=== PATIENT | female | born 2005 | race Caucasian/White ===

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

== ENCOUNTER 2023-11-03 19:37 | Emergency (ER) | payer SELFPAY ==
[~2023-11-03] VITALS: Ht 157.5 cm; Wt 77.0 kg
[~2023-11-03 19:37] MED LIST changes: +DICYCLOMINE HCL20 MG PO
[2023-11-03] MEDS ORDERED: ACETAMINOPHEN 500 MG TAB PO ONE (20:35)
[2023-11-03 20:52] LABS: BASO% 0.4 % (0-3); EOS% 1.8 % (0-8); HEMATOCRIT 35.1 % (37.0-47.0); HEMOGLOBIN 11.4 g/dl (12.0-16.0); IMMATURE GRANULOCYTES 0.1 % (0.0-5.0); LYMPH% 29.3 % (15-41); MEAN CELL VOLUME 84.8 fL CALC (80.0-100.0); MEAN CORPUSCULAR HGB 27.5 pG CALC (26.0-32.0); MEAN CORPUSCULAR HGB CONC 32.5 g/dL CAL (32.0-36.0); MONO% 7.4 % (2-13); NEUT# 4.51 thou/uL (2.00-7.15); RED BLOOD COUNT 4.14 mill/uL (4.20-5.60)
[2023-11-03 20:55] LABS: URINE BILIRUBIN - DIPSTICK Negative (NEGATIVE); URINE BLOOD DIPSTICK Negative (NEGATIVE); URINE GLUCOSE - DIPSTICK Negative (NEGATIVE); URINE KETONE Negative (NEGATIVE); URINE LEUK ESTERASE Negative (NEGATIVE); URINE NITRITE - DIPSTICK Negative (Negative); URINE PH 8.5 (4.5-8.0); URINE PROTEIN - DIPSTICK Trace mg/dL (NEG-TRACE)
[2023-11-03 20:56] LABS: URINE COLOR Yellow
[2023-11-03 21:11] LABS: ALBUMIN 4.2 g/dL (3.2-5.0); BILIRUBIN, TOTAL 0.6 mg/dL (0.02-1.3); CREATININE 0.6 mg/dL (0.5-1.0); POTASSIUM 3.8 mmol/l (3.5-5.1); TOTAL PROTEIN 7.4 g/dL (6.3-8.2)
[2023-11-03] MEDS ORDERED: DICYCLOMINE HCL 10 MG/CAP PO ONE (22:40)
[2023-11-03 22:58] VITALS: BP 110/67
== END 2023-11-03 22:58 | disposition home or self-care (01) | DRG 392 ==
LOC: ED 19:37
PROVIDERS: Internal Medicine
DX: R10.12 Left upper quadrant pain (principal); R10.32 Left lower quadrant pain; R74.8 Abnormal levels of other serum enzymes

== ENCOUNTER 2023-11-16 05:08 | Emergency (ER) | payer SELFPAY ==
[~2023-11-16] VITALS: Ht 157.5 cm; Wt 82.0 kg
[2023-11-16 05:21] VITALS: BP 113/73
[2023-11-16 05:35] VITALS: BP 120/68
[2023-11-16] MEDS ORDERED: PROMETHAZINE HCL 25 MG/ML AMP IV ONE (05:35)
[2023-11-16] MEDS ORDERED: ACETAMINOPHEN 500 MG TAB PO ONE (05:35)
[2023-11-16] MEDS ORDERED: SODIUM CHLORIDE 0.9% 1,000 ML IV ONE (05:35)
[2023-11-16] MEDS ORDERED: SUMAtriptan SUCCINATE 6 MG/0.5 ML SDV SC ONE (05:35)
[2023-11-16] MEDS ORDERED: KETOROLAC TROMETHAMINE 30 MG/ML SDV IV ONE (05:35)
[2023-11-16] MEDS ORDERED: DEXAMETHASONE SOD. PHOSPHATE 10 MG/ML VIAL IV ONE (05:35)
[2023-11-16] MEDS ORDERED: DiphenhydrAMINE HCL 50 MG/ML SDV IV ONE (05:55)
[2023-11-16 06:38] LABS: URINE BILIRUBIN - DIPSTICK Negative (NEGATIVE); URINE BLOOD DIPSTICK Negative (NEGATIVE); URINE GLUCOSE - DIPSTICK Negative (NEGATIVE); URINE KETONE Negative (NEGATIVE); URINE LEUK ESTERASE Negative (NEGATIVE); URINE NITRITE - DIPSTICK Negative (Negative); URINE PROTEIN - DIPSTICK Negative (NEG-TRACE); URINE SPECIFIC GRAVITY 1.015
[2023-11-16 06:39] LABS: BASO% 0.6 % (0-3); EOS% 2.3 % (0-8); HEMATOCRIT 37.5 % (37.0-47.0); HEMOGLOBIN 12.3 g/dl (12.0-16.0); IMMATURE GRANULOCYTES 0.1 % (0.0-5.0); LYMPH% 30.8 % (15-41); MEAN CELL VOLUME 84.8 fL CALC (80.0-100.0); MEAN CORPUSCULAR HGB 27.8 pG CALC (26.0-32.0); MEAN CORPUSCULAR HGB CONC 32.8 g/dL CAL (32.0-36.0); MONO% 7.5 % (2-13); NEUT# 5.86 thou/uL (2.00-7.15); NEUT% 58.7 % (42-76); RED BLOOD COUNT 4.42 mill/uL (4.20-5.60); RED CELL DISTRI WIDTH 12.5 % (11.5-15.5)
[2023-11-16 06:59] LABS: ALBUMIN 4.5 g/dL (3.2-5.0); BILIRUBIN, TOTAL 0.5 mg/dL (0.02-1.3); CREATININE 0.6 mg/dL (0.5-1.0)
[2023-11-16 07:02] VITALS: BP 107/74
[2023-11-16 07:03] LABS: URINE COLOR Yellow
[2023-11-16] MEDS ORDERED: PROMETHAZINE HY25 M1 PO (07:39)
[2023-11-16 07:46] VITALS: BP 107/74
== END 2023-11-16 07:55 | disposition home or self-care (01) | DRG 833 ==
LOC: ED 05:08
PROVIDERS: Family Medicine
DX: O26.891 Other specified pregnancy related conditions, first trimester (principal); R51.9 Headache, unspecified; Z3A.00 Weeks of gestation of pregnancy not specified

== ENCOUNTER 2024-06-05 14:15 | Emergency (ER) | payer OTHER ==
[~2024-06-05] VITALS: Ht 157.5 cm; Wt 84.0 kg
[~2024-06-05 14:15] MED LIST changes: +PROMETHAZINE HY25 M1 PO
[2024-06-05 14:21] VITALS: BP 127/81
[2024-06-05 14:30] VITALS: BP 121/71
== END 2024-06-05 15:26 | disposition home or self-care (01) ==
LOC: ED 14:15
DX: O36.8130 Decreased fetal movements, third trimester, not applicable or unspecified (principal); Z3A.32 32 weeks gestation of pregnancy